=== PATIENT | female | born 2000 | race Caucasian/White ===

== ENCOUNTER 2023-06-29 08:07 | Inpatient (IN) ==
--- NOTE | 2023-06-29 08:45 | Emergency Department Note ---
Impression & Plan Sepsis, Sinusitis, Allergic drug rash due to sulfonamide ED Provider Note NAME: RADHA HAWK AGE: 23 SEX: F : 2000 ARRIVES VIA: Walk-In INFORMANT: Patient ED PROVIDER(S): Tito Charlton DO CHIEF COMPLAINT: Rash, and fever HPI: Patient is a 21-year-old female who presents to the ER who had her wisdom teeth taken out in mid April. Following this she notes that she had pressure on the right side of her face and was treated several times for sinus infection. She now just started a prescription for Bactrim and is on day 6 of 21 days. She notes the fever started last night. The rash has continued and gotten worse throughout her upper body. She notes that it is itchy. No oral involvement. No chest pain or shortness of breath. No belly pain. No dysuria, urgency, or frequency. She has no headache with the exception of the pain behind her right eye which has been present for the past several weeks. She is following with an ENT in [place]. She notes that she does have an allergy to penicillins. She also notes that she took Sudafed prior to the rash starting. She has had Sudafed before but notes that not this specific kind. ADDITIONAL HISTORY OBTAINED: Per HPI Chronic Medical/Social Conditions Affecting Care: Per HPI PAST MEDICAL HISTORY:See Below PAST SURGICAL HISTORY:See Below FAMILY HISTORY:See Below SOCIAL HISTORY:See Below HOME MEDICATIONS:See Below ALLERGIES:See Below VITALS:See Below PHYSICAL EXAMINATION: GENERAL: Sitting up in bed, alert, well appearing, well nourished, no distress, non-toxic EYE EXAM: normal conjunctiva. PERRL and EOM's intact. OROPHARYNX: no exudate, no erythema, lips, buccal mucosa, and tongue normal and mucous membranes are moist NECK: supple, no nuchal rigidity, no adenopathy, non-tender LUNGS: Clear to auscultation. Normal chest wall mechanics HEART: no murmurs, S1 normal and S2 normal ABDOMEN: abdomen soft, non-tender, normo-active bowel sounds, no masses, no rebound or guarding. BACK: Back is symmetrical on inspection and there is no deformity, no midline tenderness, no CVA tenderness. SKIN: Erythematous maculopapular rash which blanches. Negative Nikolsky. Includes the face chest back belly and arms. Limited UPPER EXTREMITIES: upper extremities are grossly normal. LOWER EXTREMITIES: No pitting edema. NEURO EXAM: Normal sensorium, cranial nerves II-XII grossly intact, normal speech, no gross weakness of arms, no gross weakness of legs. MEDICAL DECISION MAKING: Patient is a 21-year-old female who presents the ER for the above-stated complaint. IV was established blood work was obtained. Labs show leukopenia 3.2 thousand. BMP with a mild hyponatremia at 131. Slightly low magnesium at 1.6. Troponin was negative. Pro-Jarod was normal. UA was unremarkable. Viral panel was negative. CT of the head does suggest sinusitis. She was febrile and tachycardic. Heart rate was in the 130s. Heart rate trended down with 2 L as well as the fever. Chest x-ray was clean. CT head was negative. She was given steroids, Benadryl and Pepcid. Rash is blanching. Negative Nikolsky. No petechiae. There is no obvious oral involvement at this time. Patient will need close observation as I do favor this likely secondary to Bactrim. Always a chance for SJS/TEN and patient will need close monitoring as well as additional IV antibiotics. Patient was given clinda mycin IV for the sinusitis after discussion with the hospitalist as well as pharmacist. No signs of meningitis or encephalitis on admission. Consults/Care Managements Discussions: Per [facility] Triage Nursing notes reviewed. Limited review of prior medical records performed Vital Signs: reviewed and remarkable for febrile and tachy Differential diagnosis: Differential diagnosis includes etiologies such as sepsis, UTI, pneumonia, metabolic, electrolyte abnormalities, cardiac sources, intracerebral event, toxicologic, neurological, as well as others were entertained. ER treatment provided: See below Diagnostics interpreted by me include EKG and cardiac monitoring as listed below: -Cardiac Monitoring: An order was placed for continuous cardiac monitoring. The monitor shows a rate of 130 with sinus rhythm. -ECG: Sinus rhythm rate of 103 Normal axis No PVCs ECG 434 -Laboratory studies:Interpreted by me as stated above in MDM and shown below. Imaging studies: Xrays: As interpreted by me: Portable AP upright 1 view of the chest shows no focal CTs show: CT head and sinuses suggest acute sinusitis Procedures:none Critical Care: None Past Med/Surg History Medical History IBS (irritable bowel syndrome) Surgical History No pertinent past surgical history Social History Smoking Status: Never smoker Feels Safe at Home: Yes Allergies Allergies Allergy/AdvReac Type Severity Reaction Status Date / Time sulfamethoxazole Allergy Intermediate Rash Verified 06/29/23 12:50 [From Bactrim] trimethoprim [From Bactrim] Allergy Intermediate Rash Verified 06/29/23 12:50 Penicillins Allergy Rash Verified 03/26/22 00:38 Home Meds Home Medications Medication Instructions Recorded Confirmed norethindrone 1 mg-ethinyl 1 tab PO DAILY 06/29/23 06/29/23 estradiol 10 mcg (24)-iron 10 mcg(2) tablet (Lo Loestrin Fe) sulfamethoxazole 800 1 tab PO BID 06/29/23 06/29/23 mg-trimethoprim 160 mg tablet Results & Data (ED) Vital Signs Vital Signs - 24 hr 06/29/23 08:15 06/29/23 09:00 06/29/23 10:08 Temperature 38.5 C H 37.4 C Temperature Source Temporal Artery Scan Oral Pulse Rate 132 H 110 H Pulse Rate [Left Finger] 108 H Pulse Rhythm Regular Respiratory Rate 16 20 24 Respiratory Effort / Characteristics Non-Labored Respiratory Depth Normal Blood Pressure 113/75 Blood Pressure [Left Arm] 108/87 Blood Pressure Mean 87 Blood Pressure Mean [Left Arm] 94 Pulse Oximetry 100 98 99 Oxygen Delivery Method Room Air Room Air Sepsis Recent Fever Within 48 Hours No Sepsis New/Unexplained Change in Mental Status N/A Sepsis Action Taken by Nursing No Action Required 06/29/23 11:26 Temperature Temperature Source Pulse Rate Pulse Rate [Left Finger] 96 H Pulse Rhythm Respiratory Rate 20 Respiratory Effort / Characteristics Respiratory Depth Blood Pressure Blood Pressure [Left Arm] 110/72 Blood Pressure Mean Blood Pressure Mean [Left Arm] 84 Pulse Oximetry 100 Oxygen Delivery Method Room Air Sepsis Recent Fever Within 48 Hours Sepsis New/Unexplained Change in Mental Status Sepsis Action Taken by Nursing Laboratory Data 06/29/23 08:45 06/29/23 08:45 Lab Results 06/29/23 06/29/23 Range/Units 08:45 08:57 WBC 3.26 L (4.8-10.8) K/ul RBC 4.30 (4.20-5.40) M/uL Hgb 12.4 (12.0-16.0) g/dl Hct 37.2 (37.0-47.0) % MCV 86.5 (80.0-100.0) fL MCH 28.8 (25.0-34.0) pg MCHC 33.3 (32.0-36.0) g/dL RDW Std Deviation 40.2 (36.4-46.3) fL RDW Coeff of Daria 12.8 (11.5-14.5) % Plt Count 260 (130-400) K/uL MPV 9.5 (9.4-12.4) fL Immature Gran % (Auto) 0.3 % Neut % (Auto) 74.6 % Lymph % (Auto) 11.3 % [place] % (Auto) 10.1 % Eos % (Auto) 3.7 % Baso % (Auto) 0.0 % Neut # (Auto) 2.43 (1.40-6.50) K/uL Lymph # (Auto) 0.37 L (1.20-3.40) K/uL [place] # (Auto) 0.33 (0.11-0.59) K/uL Eos # (Auto) 0.12 (0.00-0.50) K/uL Baso # (Auto) 0.00 (0.00-0.20) K/uL Immature Gran # (Auto) 0.01 (0.01-0.20) K/uL Sodium 131 L (136-145) mmol/L Potassium 3.7 (3.5-5.1) mmol/L Chloride 99 (98-107) mmol/L Carbon Dioxide 23 (21-32) mmol/L Anion Gap 9 (3-11) BUN 6 (6-23) mg/dl Creatinine 0.85 (0.6-1.2) mg/dl Est Cr Clr Drug Dosing 90.6 ml/min Est GFR ( Amer) 112.7 ml/min Est GFR (Non-Af Amer) 97.3 ml/min BUN/Creatinine Ratio 7.1 L (10-20) Glucose 96 (70-99(Fasting)) mg/dl Lactate 0.8 (0.4-2.0) mmol/L Calcium 9.2 (8.6-10.3) mg/dl Magnesium 1.6 L (1.7-2.4) mg/dl Total Bilirubin 0.3 (0.2-1.0) mg/dl Direct Bilirubin 0.0 (0-0.2) mg/dl AST 21 (13-39) U/L ALT 20 (7-52) U/L Alkaline Phosphatase 67 (34-104) U/L Troponin I High Sens < 2.3 (0-14) pg/ml Total Protein 7.9 (6.0-8.3) gm/dl Albumin 4.5 (3.4-5.0) gm/dl Procalcitonin 0.14 (0-0.5) ng/ml Urine Color Yellow Urine Appearance Clear (Clear) Urine pH 6.5 (4.5-7.5) Ur Specific [place] 1.015 (1.000-1.030) Urine Protein Negative (Negative) Urine Glucose (UA) Negative (Negative) Urine Ketones Trace H (Negative) Urine Blood Negative (Negative) Urine Nitrite Negative (Negative) Urine Bilirubin Negative (Negative) Urine Urobilinogen Negative (Negative) Ur Leukocyte Esterase Negative (Negative) Adenovirus (PCR) Not Detected (NotDetected) B. pertussis DNA (PCR) Not Detected (NotDetected) B.parapertussis DNA PCR Not Detected (NotDetected) C. pneumoniae DNA (PCR) Not Detected (NotDetected) Coronavirus OC43 (PCR) Not Detected (NotDetected) Coronavirus HKU1 (PCR) Not Detected (NotDetected) Coronavirus 229E (PCR) Not Detected (NotDetected) SARS-CoV-2 (PCR) Not Detected (NotDetected) Coronavirus NL63 (PCR) Not Detected (NotDetected) Human Metapneumovir PCR Not Detected (NotDetected) Influenza Type A (PCR) Not Detected (NotDetected) Influenza Type B (PCR) Not Detected (NotDetected) M. pneumoniae (PCR) Not Detected (NotDetected) Parainfluenza 1 (PCR) Not Detected (NotDetected) Parainfluenza 2 (PCR) Not Detected (NotDetected) Parainfluenza 3 (PCR) Not Detected (NotDetected) Parainfluenza 4 (PCR) Not Detected (NotDetected) RSV (PCR) Not Detected (NotDetected) Entero/Rhino (PCR) Not Detected (NotDetected) Administered Medications Discontinued Medications Acetaminophen (Acetaminophen 325 Mg Tab) 650 mg PO NOW STA Stop: 06/29/23 09:05 Last Admin: 06/29/23 09:32 Dose: 650 mg Documented By: JHONY Diphenhydramine HCl (Diphenhydramine 50 Mg/Ml Vial) 50 mg IV NOW STA Stop: 06/29/23 08:43 Last Admin: 06/29/23 09:03 Dose: 50 mg Documented By: JHONY Sodium Chloride (Nss) 1,000 mls @ 999 mls/hr IV .Q1H1M ALISSA Stop: 06/29/23 10:45 Last Infusion: 06/29/23 10:50 Dose: Infused Documented By: Admin: 06/29/23 09:53 Dose: 999 mls/hr Documented By: Infusion: 06/29/23 09:53 Dose: Infused Documented By: Admin: 06/29/23 08:52 Dose: 999 mls/hr Documented By: JHONY Famotidine (Pepcid 20mg Iv Push) 20 mg in 5 mls @ 2.5 mls/min IV NOW STA Stop: 06/29/23 08:43 Last Admin: 06/29/23 09:02 Dose: 2.5 mls/min Documented By: JHONY Clindamycin Phosphate (Cleocin/D5w) 900 mg in 50 mls @ 100 mls/hr IV NOW ONE Stop: 06/29/23 12:33 Last Infusion: 06/29/23 13:00 Dose: Infused Documented By: Admin: 06/29/23 12:15 Dose: 100 mls/hr Documented By: JHONY Methylprednisolone (Methylprednisolone 125 Mg/2 Ml Vial) 125 mg IV NOW STA Stop: 06/29/23 08:43 Last Admin: 06/29/23 09:04 Dose: 125 mg Documented By: JHONY Imaging Data Radiologist's Impression: Chest X-Ray 06/29/23 08:42 SINGLE VIEW CHEST CLINICAL HISTORY: Sepsis. FINDINGS: An AP, portable, upright chest radiograph is obtained. No prior studies are available for comparison at the time of dictation. The cardiomediastinal silhouette is unremarkable. The lungs and pleural spaces are clear. No pneumothorax is seen. The bony thorax is grossly intact. IMPRESSION: No active disease in the chest. ACT 112: Negative or not required by law. Electronically signed by: Delio Beth M.D. 06/29/2023 9:[address] 06/29/23 08:42 CT SCAN OF THE BRAIN WITHOUT IV CONTRAST CLINICAL HISTORY: Right-sided headache. Pain behind the right eye. COMPARISON STUDY: No priors. TECHNIQUE: Unenhanced axial CT scan of the brain is performed from the vertex to the skull base. A dose lowering technique was utilized adhering to the principles of ALARA. FINDINGS: Brain parenchyma: The brain parenchyma is normal in appearance. There is no hemorrhage, mass effect, or evidence of acute territorial ischemia by CT criteria. Bautista-white matter differentiation is preserved. No extra-axial fluid collection is seen. Ventricles, sulci, cisterns: Normal in configuration. Intracranial vasculature: The visualized intracranial vasculature at the skull base is normal in appearance. Calvarium: Unremarkable. Sinuses and mastoids: There is subtotal opacification of the right maxillary antrum which contains an air-fluid level. There are opacified right anterior ethmoid sinuses, there is also near complete opacification of the right frontal sinus. The mastoid air cells are well pneumatized. Orbits: The bony orbits are grossly intact. IMPRESSION: 1. No acute intracranial abnormality. 2. Paranasal sinus disease as above. ACT 112: Negative or not required by law. Electronically signed by: Delio Beth M.D. 06/29/2023 10:[address] 06/29/23 09:23 CT SCAN OF THE PARANASAL SINUSES CLINICAL HISTORY: Facial pain. COMPARISON STUDY: CT of the brain performed the same day 06/29/2023. TECHNIQUE: High-resolution CT scan of the paranasal sinuses is performed. Images are reviewed in the axial, sagittal, and coronal planes. IV contrast was not administered for this examination. A dose lowering technique was utilized adhering to the principles of ALARA. CT DOSE: 1394.57 mGy.cm FINDINGS: Maxillary antra: There is subtotal opacification of the right maxillary antrum noting an air-fluid level. The left maxillary sinus is clear. Anterior ethmoid sinuses: There is complete opacification of several right anterior ethmoid sinuses. Normal left. Posterior ethmoid sinuses: Clear. Sphenoid sinuses: Clear. Frontal sinuses: Subtotally opacified on the right. Clinical left. Ostiomeatal complexes: Occluded on the right. Clear on the left. Frontoethmoidal and sphenoethmoidal recesses: The right frontoethmoidal recess is occluded. The left frontoethmoidal recess and the sphenoethmoidal recesses are clear. Carotid arteries: The carotid arteries are covered noting a septal attachment on the right. Ethmoid roofs: The ethmoid roofs are symmetric. Nasal turbinates: There is dayday bullosa of the left middle nasal turbinate. Nasal septum: There is mild leftward deviation of the bony nasal septum. Optic nerves: Covered. Orbits: The bony orbits are intact. Orbital contents are normal in appearance. Calvarium: The imaged calvarium is normal in appearance Mastoid air cells: Well pneumatized. Brain parenchyma: Normal as visualized. IMPRESSION: Right-sided paranasal sinus disease as above. ACT 112: Negative or not required by law. Electronically signed by: Delio Beth M.D. 06/29/2023 11:44 AM Discharge Plan Visit Data Chief Complaint: Skin Problem Stated Complaint: ON ANTIBIOTICS, HAS HIVES ED Provider: Tito Charlton Discharge Problem: Sepsis, Sinusitis, Allergic drug rash due to sulfonamide Forms Stand Alone Forms: [facility] [place] [employer] Prescriptions Prescriptions: No Action sulfamethoxazole-trimethoprim 800-160 mg tablet 1 tab PO BID Lo Loestrin Fe 1 mg-10 mcg (24)/10 mcg (2) tablet 1 tab PO DAILY Referrals Referrals: Jeanna Franks [Outside Practitioners] - Discharge Problem: Sepsis Qualifiers: Sepsis type: sepsis due to unspecified organism Sepsis acute organ dysfunction status: unspecified Qualified Code(s): A41.9 - Sepsis, unspecified organism Sinusitis Qualifiers: Sinusitis location: unspecified location Chronicity: unspecified Qualified Code(s): J32.9 - Chronic sinusitis, unspecified
[2023-06-29] MEDS: SODIUM CHLORIDE 0.9% 1,000 ML IV SCH ×2 (08:52→15:49)
[2023-06-29] MEDS: FAMOTIDINE 20MG IV PUSH 20 MG/5 ML SYR IV STA (09:02)
[2023-06-29] MEDS: diphenhydrAMINE 50 MG/ML VIAL IV STA ×2 (09:03→23:51)
[2023-06-29] MEDS: methylPREDNISolone 125 MG/2 ML VIAL IV STA (09:04)
[2023-06-29 09:11] LABS: Eosinophils # (auto) 0.12 K/uL (0.00-0.50); Eosinophils % (auto) 3.7 %; Hematocrit (blood only) 37.2 % (37.0-47.0); Hemoglobin 12.4 g/dl (12.0-16.0); Immature Granulocytes # (auto) 0.01 K/uL (0.01-0.20); Immature Granulocytes % (auto) 0.3 %; Lymphocytes # (auto) 0.37 K/uL (1.20-3.40); Lymphocytes % (auto) 11.3 %; Mean Corpuscular Hemoglobin 28.8 pg (25.0-34.0); Mean Corpuscular Hgb Conc 33.3 g/dL (32.0-36.0); Mean Corpuscular Volume 86.5 fL (80.0-100.0); Mean Platelet Volume 9.5 fL (9.4-12.4); Monocytes # (auto) 0.33 K/uL (0.11-0.59); Monocytes % (auto) 10.1 %; Neutrophils # (auto) 2.43 K/uL (1.40-6.50); Neutrophils % (auto) 74.6 %; Platelet Count 260 K/uL (130-400); RDW Coefficient of Variation 12.8 % (11.5-14.5); RDW Standard Deviation 40.2 fL (36.4-46.3); White Blood Count 3.26 K/ul (4.8-10.8)
[2023-06-29 09:31] LABS: Alanine Aminotransferase 20 U/L (7-52); Albumin Level 4.5 gm/dl (3.4-5.0); Alkaline Phosphatase 67 U/L (34-104); Anion Gap 9 (3-11); Aspartate Aminotransferase 21 U/L (13-39); BUN Creatinine Ratio 7.1 (10-20); Bilirubin,Total 0.3 mg/dl (0.2-1.0); Blood Urea Nitrogen 6 mg/dl (6-23); Calcium 9.2 mg/dl (8.6-10.3); Carbon Dioxide 23 mmol/L (21-32); Chloride 99 mmol/L (98-107); Creatinine Clr Calc Pharmacy 90.6 ml/min; Est GFR (African American) 112.7 ml/min; Est GFR (Non-African American) 97.3 ml/min; Glucose 96 mg/dl (70-99(Fasting)); Magnesium 1.6 mg/dl (1.7-2.4); Potassium 3.7 mmol/L (3.5-5.1); Sodium 131 mmol/L (136-145); Total Protein 7.9 gm/dl (6.0-8.3); Troponin I High Sensitivity < 2.3 pg/ml (0-14)
[2023-06-29] MEDS: ACETAMINOPHEN 325 MG TAB PO STA (09:32)
[2023-06-29 09:37] LABS: Appearance Urine Clear (Clear); Bilirubin Urine Negative (Negative); Blood Urine Negative (Negative); Color Urine Yellow; Glucose Urine UA Negative (Negative); Ketones Urine Trace (Negative); Leukocyte Esterase Urine Negative (Negative); Nitrite Urine Negative (Negative); Protein Urine Negative (Negative); Specific Gravity Urine 1.015 (1.000-1.030); Urobilinogen Urine Negative (Negative); pH Urine 6.5 (4.5-7.5)
--- NOTE | 2023-06-29 09:56 | XRay Report ---
SINGLE VIEW CHEST CLINICAL HISTORY: Sepsis. FINDINGS: An AP, portable, upright chest radiograph is obtained. No prior studies are available for c omparison at the time of dictation. The cardiomediastinal silhouette is unremarkable. The lungs and p leural spaces are clear. No pneumothorax is seen. The bony thorax is grossly intact. IMPRESSION: No active disease in the chest. ACT 112: Negative or not required by law. Electronically signed by: Delio Beth M.D. 06/29/2023 9:55 AM
--- NOTE | 2023-06-29 10:07 | CT Scan Report ---
CT SCAN OF THE BRAIN WITHOUT IV CONTRAST CLINICAL HISTORY: Right-sided headache. Pain behind the right eye. COMPARISON STUDY: No priors. TECHNIQUE: Unenhanced axial CT scan of the brain is performed from the vertex to the skull base. A d ose lowering technique was utilized adhering to the principles of ALARA. FINDINGS: Brain parenchyma: The brain parenchyma is normal in appearance. There is no hemorrhage, mass effect, or evidence of acute territorial ischemia by CT criteria. Bautista-white matter differentiation is preser venancio. No extra-axial fluid collection is seen. Ventricles, sulci, cisterns: Normal in configuration. Intracranial vasculature: The visualized intracranial vasculature at the skull base is normal in appe arance. Calvarium: Unremarkable. Sinuses and mastoids: There is subtotal opacification of the right maxillary antrum which contains an air-fluid level. There are opacified right anterior ethmoid sinuses, there is also near complete opa cification of the right frontal sinus. The mastoid air cells are well pneumatized. Orbits: The bony orbits are grossly intact. IMPRESSION: 1. No acute intracranial abnormality. 2. Paranasal sinus disease as above. ACT 112: Negative or not required by law. Electronically signed by: Delio Beth M.D. 06/29/2023 10:05 AM
[2023-06-29 10:17] LABS: Adenovirus PCR Not Detected (NotDetected); Bordetella parapertussis PCR Not Detected (NotDetected); Bordetella pertussis PCR Not Detected (NotDetected); Chlamydia pneumoniae PCR Not Detected (NotDetected); Coronavirus 229E PCR Not Detected (NotDetected); Coronavirus CoV-2 (COVID19)PCR Not Detected (NotDetected); Coronavirus HKU1 PCR Not Detected (NotDetected); Coronavirus NL63 PCR Not Detected (NotDetected); Coronavirus OC43PCR Not Detected (NotDetected); Human Metapneumovirus PCR Not Detected (NotDetected); Influenza A PCR Not Detected (NotDetected); Influenza B PCR Not Detected (NotDetected); Mycoplasma pneumoniae PCR Not Detected (NotDetected); Parainfluenza Virus 1 PCR Not Detected (NotDetected); Parainfluenza Virus 2 PCR Not Detected (NotDetected); Parainfluenza Virus 3 PCR Not Detected (NotDetected); Parainfluenza Virus 4 PCR Not Detected (NotDetected); Respiratory Syncytial VirusPCR Not Detected (NotDetected); Rhinovirus/Enterovirus PCR Not Detected (NotDetected)
--- NOTE | 2023-06-29 11:45 | CT Scan Report ---
CT SCAN OF THE PARANASAL SINUSES CLINICAL HISTORY: Facial pain. COMPARISON STUDY: CT of the brain performed the same day 06/29/2023. TECHNIQUE: High-resolution CT scan of the paranasal sinuses is performed. Images are reviewed in the axial, sagittal, and coronal planes. IV contrast was not administered for this examination. A dose lowering technique was utilized adhering to the principles of ALARA. CT DOSE: 1394.57 mGy.cm FINDINGS: Maxillary antra: There is subtotal opacification of the right maxillary antrum noting an air-fluid le dylan. The left maxillary sinus is clear. Anterior ethmoid sinuses: There is complete opacification of several right anterior ethmoid sinuses. Normal left. Posterior ethmoid sinuses: Clear. Sphenoid sinuses: Clear. Frontal sinuses: Subtotally opacified on the right. Clinical left. Ostiomeatal complexes: Occluded on the right. Clear on the left. Frontoethmoidal and sphenoethmoidal recesses: The right frontoethmoidal recess is occluded. The left frontoethmoidal recess and the sphenoethmoidal recesses are clear. Carotid arteries: The carotid arteries are covered noting a septal attachment on the right. Ethmoid roofs: The ethmoid roofs are symmetric. Nasal turbinates: There is dayday bullosa of the left middle nasal turbinate. Nasal septum: There is mild leftward deviation of the bony nasal septum. Optic nerves: Covered. Orbits: The bony orbits are intact. Orbital contents are normal in appearance. Calvarium: The imaged calvarium is normal in appearance Mastoid air cells: Well pneumatized. Brain parenchyma: Normal as visualized. IMPRESSION: Right-sided paranasal sinus disease as above. ACT 112: Negative or not required by law. Electronically signed by: Delio Beth M.D. 06/29/2023 11:44 AM
--- NOTE | 2023-06-29 11:49 | Electrocardiogram Report ---
Test Reason : Blood Pressure : / mmHG Vent. Rate : 103 BPM Atrial Rate : 103 BPM P-R Int : 148 ms QRS Dur : 062 ms QT Int : 332 ms P-R-T Axes : 086 080 070 degrees QTc Int : 434 ms Sinus tachycardia Abnormal ECG No previous ECGs available Confirmed by Anthony Rose ([id number]) on 06/29/2023 11:49:19 AM Referred By: Confirmed By:River Rose
[2023-06-29] MEDS: CLINDAMYCIN/D5W 900 MG/50 ML BAG IV ONE (12:15)
--- NOTE | 2023-06-29 12:18 | History & Physical Report ---
Date of Service June 29, 2023 Assessment & Plan (1) Sepsis: Plan: Febrile, tachycardic, white blood count < 4. - Suspected systemic inflammatory response is really due to her type IV hypersensitivity reaction however we will treat as sepsis. Lactate normal and no hypotension to warrant 30 ml/kg fluid resuscitation IV clindamycin to cover for sinusitis Follow-up blood cultures (2) Sinusitis: Plan: Clindamycin 600 mg IV q.8 hourly Prednisone should also help with this Saline nasal spray BID Will need to follow-up with ENT in [place] on discharge (3) Allergic drug rash due to sulfonamide: Plan: Type IV hypersensitivity reaction - suspect this was also the cause of her fever given occurrence at the same time Solu-Medrol 125 mg IV given in the ER, will continue 40 mg prednisone p.o. daily however main treatment is just withdrawal of Bactrim therefore this can be stopped once itching improves Lo 180 mg p.o. daily Diphenhydramine 25 mg IV PRNs q.6 hourly for itching or continued rash Expect improvement over days not hours - may get worse before improving as main treatment is removal of Bactrim which she last took at 6pm yesterday No current mucosal involvement, conjunctivitis or blistering to suggest Josh Brad syndrome - if these develop will need to be transferred to tertiary care center with dermatology Avoid sulfa antibiotics in the future Consider follow-up with allergy with concurrent possible penicillin allergy Plan VTE Prophyalxis - low risk Diet - regular Disposition - admit to med/surg Admission and Anticipated Discharge Date Admission Date: June 29, 2023 History of Present Illness Chief Complaint: Fever and rash Primary Care Provider: [facility] Constance Huggins is a 23-year-old female who presents to the ER due to fever and rash. She reports a history of wisdom tooth extraction in mid April after which she has had problems with her right maxillary sinus pressure. She has been on multiple rounds of antibiotics including azithromycin, cefuroxime and Levaquin. Of note she never took the penicillin that was prescribed due to a previous allergy to this. Most recently she was seen by ENT in [place] who started Bactrim for 21 days and plan to review a CT of the sinuses following this to determine if she required surgery. She has had no problems with her sinuses prior to her wisdom tooth removal. She started the Bactrim 6 days ago. She has not noticed any change in her sinuses. Last night she developed a fever and a rash which became worse this morning therefore decided to come to the ER. Allergies Allergy/AdvReac Type Severity Reaction Status Date / Time sulfamethoxazole Allergy Intermediate Rash Verified 06/29/23 12:50 [From Bactrim] trimethoprim [From Bactrim] Allergy Intermediate Rash Verified 06/29/23 12:50 Penicillins Allergy Rash Verified 03/26/22 00:38 Home Medications Medication Instructions Recorded Confirmed Type norethindrone 1 mg-ethinyl 1 tab PO DAILY 06/29/23 06/29/23 History estradiol 10 mcg (24)-iron 10 mcg(2) tablet (Lo Loestrin Fe) sulfamethoxazole 800 1 tab PO BID 06/29/23 06/29/23 History mg-trimethoprim 160 mg tablet Past Med/Surg History Medical History IBS (irritable bowel syndrome) Surgical History No pertinent past surgical history Social History Smoking Status: Never smoker Second Hand Exposure: No; Do You Dip or Chew Tobacco: No; Tobacco Cessation Education Requested by Patient: No Hx Alcohol Use: No Hx Substance Use: No Preferred Language: French Communication Ability: Effective Well Digger Required: No Beliefs That Will Affect Care: None Current Living Situation: Other Current Living Situation Comment: Student on [place], from [place] originally Other Information That Helps Us Care for You: No Feels Safe at Home: Yes Safety Concerns: Feels Safe At This Time Assistive Devices: None Review of Systems Review of Systems: All systems reviewed & are unremarkable except as noted in HPI & below Physical Exam Constitutional: WD/WN, vitals as above Eyes: + anicteric sclerae; no corneal abnormal ity and normal pupil size ENMT: external ear and nose normal, oropharynx normal Pain over the right maxillary sinus Respiratory: normal respiratory effort, lungs clear to auscultation Cardiovascular: Rate/Rhythm: regular rhythm and + tachycardic Heart Sounds: no murmur Gastrointestinal (Abdomen): normal bowel sounds, soft, nontender, no hepatosplenomegaly Skin: + erythema (Widespread maculopapular diane h over face, torso, abdomen and all 4 extremiti) Rash most notable over the back Neurologic: moves all extremities and awake; not confused Psychiatric: A+Ox3, euthymic affect Results & Data Results & Data Vital Signs (Past 12 Hours) Vital Signs Temp Pulse Pulse Resp BP BP Pulse Ox 06/29/23 11:26 96 H 20 110/72 100 06/29/23 10:08 37.4 C 108 H 24 108/87 99 06/29/23 09:00 110 H 20 98 06/29/23 08:15 38.5 C H 132 H 16 113/75 100 O2 Del Method 06/29/23 11:26 Room Air 06/29/23 10:08 06/29/23 09:00 Room Air 06/29/23 08:15 Room Air Laboratory Results Abnormal lab results 06/29/23 Range/Units 08:45 WBC 3.26 L (4.8-10.8) K/ul Lymph # (Auto) 0.37 L (1.20-3.40) K/uL ESR 54 H (0-20) mm/hr Sodium 131 L (136-145) mmol/L BUN/Creatinine Ratio 7.1 L (10-20) Magnesium 1.6 L (1.7-2.4) mg/dl C-Reactive Protein 2.61 H (0-0.5) mg/dl Urine Ketones Trace H (Negative) Diagnostic Findings CT SCAN OF THE BRAIN WITHOUT IV CONTRAST CLINICAL HISTORY: Right-sided headache. Pain behind the right eye. COMPARISON STUDY: No priors. TECHNIQUE: Unenhanced axial CT scan of the brain is performed from the vertex to the skull base. A dose lowering technique was utilized adhering to the principles of ALARA. FINDINGS: Brain parenchyma: The brain parenchyma is normal in appearance. There is no hemorrhage, mass effect, or evidence of acute territorial ischemia by CT criteria. Bautista-white matter differentiation is preserved. No extra-axial fluid collection is seen. Ventricles, sulci, cisterns: Normal in configuration. Intracranial vasculature: The visualized intracranial vasculature at the skull base is normal in appearance. Calvarium: Unremarkable. Sinuses and mastoids: There is subtotal opacification of the right maxillary antrum which contains an air-fluid level. There are opacified right anterior ethmoid sinuses, there is also near complete opacification of the right frontal sinus. The mastoid air cells are well pneumatized. Orbits: The bony orbits are grossly intact. IMPRESSION: 1. No acute intracranial abnormality. 2. Paranasal sinus disease as above. SINGLE VIEW CHEST CLINICAL HISTORY: Sepsis. FINDINGS: An AP, portable, upright chest radiograph is obtained. No prior studies are available for comparison at the time of dictation. The cardiomediastinal silhouette is unremarkable. The lungs and pleural spaces are clear. No pneumothorax is seen. The bony thorax is grossly intact. IMPRESSION: No active disease in the chest. CT SCAN OF THE PARANASAL SINUSES CLINICAL HISTORY: Facial pain. COMPARISON STUDY: CT of the brain performed the same day 06/29/2023. TECHNIQUE: High-resolution CT scan of the paranasal sinuses is performed. Images are reviewed in the axial, sagittal, and coronal planes. IV contrast was not administered for this examination. A dose lowering technique was utilized adhering to the principles of ALARA. CT DOSE: 1394.57 mGy.cm FINDINGS: Maxillary antra: There is subtotal opacification of the right maxillary antrum noting an air-fluid level. The left maxillary sinus is clear. Anterior ethmoid sinuses: There is complete opacification of several right anterior ethmoid sinuses. Normal left. Posterior ethmoid sinuses: Clear. Sphenoid sinuses: Clear. Frontal sinuses: Subtotally opacified on the right. Clinical left. Ostiomeatal complexes: Occluded on the right. Clear on the left. Frontoethmoidal and sphenoethmoidal recesses: The right frontoethmoidal recess is occluded. The left frontoethmoidal recess and the sphenoethmoidal recesses are clear. Carotid arteries: The carotid arteries are covered noting a septal attachment on the right. Ethmoid roofs: The ethmoid roofs are symmetric. Nasal turbinates: There is dayday bullosa of the left middle nasal turbinate. Nasal septum: There is mild leftward deviation of the bony nasal septum. Optic nerves: Covered. Orbits: The bony orbits are intact. Orbital contents are normal in appearance. Calvarium: The imaged calvarium is normal in appearance Mastoid air cells: Well pneumatized. Brain parenchyma: Normal as visualized. IMPRESSION: Right-sided paranasal sinus disease as above. Medications Administered ER medications given: Normal saline 1 L bolus Solu-Medrol 125 mg IV Diphenhydramine 50 mg IV Famotidine 20 mg IV Acetaminophen 650 mg p.o. Clindamycin 900 mg IV ECG Rate (beats per minute): 103 Rhythm: normal sinus Findings: no acute ischemic change Comparison ECG Date: no prior available Code Status & VTE Plan Code Status Full VTE Prophylaxis Plan VTE Prophylaxis will be ordered: No PG Care Time/CCT Total # of Minutes Spent Total Time Spent: 80 Total Time Spent with Patient: Total time spent is greater than 50% in coordination of care (as documented) at patient's floor/unit and/or counseling patient: Coding Level of Care Code 57954 INT INP/OBS CARE MIN Diagnoses Sepsis A41.9 Sinusitis J32.9 Allergic drug rash due to sulfonamide L27.0; T37.0X5A
[2023-06-29 14:53] LABS: C Reactive Protein 2.61 mg/dl (0-0.5)
[2023-06-29] MEDS ORDERED: ACETAMINOPHEN 325 MG TAB PO PRN (15:26)
[2023-06-29] MEDS: MAGNESIUM SULFATE / D5W 1 GM/100 ML BAG IV SCH (15:48)
[2023-06-29] MEDS: diphenhydrAMINE 50 MG/ML VIAL IV PRN ×2 (15:53→21:52)
[2023-06-29] MEDS: FEXOFENADINE HCL 180 MG TAB PO SCH (17:14)
[2023-06-29] MEDS: ADVANCED PROBIOTIC 1250 MG CAPSULE PO SCH (17:14)
[2023-06-29] MEDS: CLINDAMYCIN/D5W 600 MG/50 ML BAG IV SCH (18:29)
[2023-06-29] MEDS: CLOBETASOL PROPIONATE 0.05% CREAM 15 GM TUBE EXT PRN (21:51)
[2023-06-29] MEDS: SODIUM CHLORIDE 0.65% NA SOLN 45 ML (OCEAN) SCH (21:52)
[2023-06-30 06:12] LABS: Basophils # (auto) 0.01 K/uL (0.00-0.20); Basophils % (auto) 0.2 %; Eosinophils # (auto) 0.14 K/uL (0.00-0.50); Eosinophils % (auto) 3.5 %; Hematocrit (blood only) 32.6 % (37.0-47.0); Hemoglobin 10.6 g/dl (12.0-16.0); Immature Granulocytes # (auto) 0.01 K/uL (0.01-0.20); Immature Granulocytes % (auto) 0.2 %; Lymphocytes # (auto) 1.54 K/uL (1.20-3.40); Lymphocytes % (auto) 38.4 %; Mean Corpuscular Hemoglobin 28.5 pg (25.0-34.0); Mean Corpuscular Hgb Conc 32.5 g/dL (32.0-36.0); Mean Corpuscular Volume 87.6 fL (80.0-100.0); Mean Platelet Volume 9.6 fL (9.4-12.4); Monocytes # (auto) 0.38 K/uL (0.11-0.59); Monocytes % (auto) 9.5 %; Neutrophils # (auto) 1.93 K/uL (1.40-6.50); Neutrophils % (auto) 48.2 %; Platelet Count 253 K/uL (130-400); RDW Coefficient of Variation 13.2 % (11.5-14.5); RDW Standard Deviation 42.4 fL (36.4-46.3); Red Blood Count 3.72 M/uL (4.20-5.40); White Blood Count 4.01 K/ul (4.8-10.8)
[2023-06-30 06:38] LABS: Albumin Globulin Ratio 1.2 (0.9-2); Albumin Level 3.6 gm/dl (3.4-5.0); BUN Creatinine Ratio 13.1 (10-20); Bilirubin,Total 0.2 mg/dl (0.2-1.0); Calcium 8.3 mg/dl (8.6-10.3); Creatinine Clr Calc Pharmacy 126.3 ml/min; Est GFR (African American) 149.1 ml/min; Est GFR (Non-African American) 128.7 ml/min; Globulin 2.9 gm/dl (2.5-4.0); Magnesium 2.1 mg/dl (1.7-2.4); Potassium 3.7 mmol/L (3.5-5.1); Total Protein 6.5 gm/dl (6.0-8.3)
[2023-06-30] MEDS: PATIENT'S OWN ORAL CONTRACEPTIVE PO SCH ×2 (08:35→20:48)
[2023-06-30] MEDS: predniSONE 20 MG TAB PO SCH (09:28)
--- NOTE | 2023-06-30 10:49 | Hospitalist Progress Note ---
Date of Service June 30, 2023 Assessment & Plan (1) Sepsis: Plan: Febrile, tachycardic, white blood count < 4. - Suspected systemic inflammatory response is really due to her type IV hypersensitivity reaction however we will treat as sepsis. Lactate normal and no hypotension to warrant 30 ml/kg fluid resuscitation IV clindamycin to cover for sinusitis Follow-up blood cultures No longer SIRS on 06/30 unsure if patients needs antibiotics at this time, will consult ID. will benefit from ENT (2) Sinusitis: Plan: Clindamycin 600 mg IV q.8 hourly Prednisone should also help with this Saline nasal spray BID Will need to follow-up with ENT in [place] on discharge (3) Allergic drug rash due to sulfonamide: Plan: Type IV hypersensitivity reaction - suspect this was also the cause of her fever given occurrence at the same time Solu-Medrol 125 mg IV given in the ER, will continue 40 mg prednisone p.o. daily however main treatment is just withdrawal of Bactrim therefore this can be stopped once itching improves Lo 180 mg p.o. daily Diphenhydramine 25 mg IV PRNs q.6 hourly for itching or continued rash Expect improvement over days not hours - may get worse before improving as main treatment is removal of Bactrim which she last took at 6pm yesterday No current mucosal involvement, conjunctivitis or blistering to suggest Josh Brad syndrome - if these develop will need to be transferred to tertiary care center with dermatology Avoid sulfa antibiotics in the future Consider follow-up with allergy with concurrent possible penicillin allergy Plan VTE Prophyalxis - low risk Diet - regular Disposition - admit to med/surg Admission and Anticipated Discharge Date Admission Date: June 29, 2023 Subjective Patient reports less priritus, and skin appears less red. Review of Systems Review of Systems: All systems reviewed & are unremarkable except as noted in HPI & below Physical Exam Constitutional: WD/WN, vitals as above Eyes: + anicteric sclerae; no corneal abnormal ity and normal pupil size ENMT: external ear and nose normal, oropharynx normal Respiratory: normal respiratory effort, lungs clear to auscultation Cardiovascular: Rate/Rhythm: regular rhythm and + tachycardic Heart Sounds: no murmur Gastrointestinal (Abdomen): normal bowel sounds, soft, nontender, no hepatosplenomegaly Skin: + erythema (Widespread maculopapular diane h over face, torso, abdomen and all 4 extremiti) Rash most notable over the back, goes below knees. Neurologic: moves all extremities and awake; not confused Psychiatric: A+Ox3, euthymic affect Results & Data Results & Data Vital Signs (Past 12 Hours) Vital Signs Temp Pulse Resp BP Pulse Ox O2 Del Method 06/30/23 10:45 101/62 06/30/23 07:56 36.8 C 85 18 90/45 L 93 Room Air PG Care Time/CCT Total # of Minutes Spent Total Time Spent with Patient: Total time spent is greater than 50% in coordination of care (as documented) at patient's floor/unit and/or counseling patient: Coding Level of Care Code 01650 SUB INP/OBS CARE 2/35MIN Diagnoses Sepsis A41.9 Sepsis acute organ dysfunction status: unspecified Sepsis type: sepsis due to unspecified organism Sinusitis J32.9 Chronicity: unspecified Sinusitis location: unspecified location Allergic drug rash due to sulfonamide L27.0; T37.0X5A (1) Sepsis Sepsis acute organ dysfunction status: unspecified Sepsis type: sepsis due to unspecified organism Qualified Code(s): A41.9 - Sepsis, unspecified organism (2) Sinusitis Chronicity: unspecified Sinusitis location: unspecified location Qualified Code(s): J32.9 - Chronic sinusitis, unspecified
[2023-06-30] MEDS ORDERED: Nursing to Pharmacy Communication SCH (11:30)
[2023-06-30] MEDS: methylPREDNISolone 20 MG in SYRINGE 0 ML IV ONE (14:02)
[2023-06-30] MEDS: diphenhydrAMINE 50 MG/ML VIAL IV STA (21:26)
[2023-07-01 07:12] LABS: Hematocrit (blood only) 33.2 % (37.0-47.0); Hemoglobin 10.9 g/dl (12.0-16.0); Mean Corpuscular Hemoglobin 28.8 pg (25.0-34.0); Mean Corpuscular Hgb Conc 32.8 g/dL (32.0-36.0); Mean Corpuscular Volume 87.6 fL (80.0-100.0); Mean Platelet Volume 9.7 fL (9.4-12.4); Platelet Count 261 K/uL (130-400); RDW Coefficient of Variation 13.5 % (11.5-14.5); RDW Standard Deviation 43.2 fL (36.4-46.3); Red Blood Count 3.79 M/uL (4.20-5.40); White Blood Count 5.37 K/ul (4.8-10.8)
[2023-07-01 07:30] LABS: BUN Creatinine Ratio 19.7 (10-20); C Reactive Protein 1.7 mg/dl (0-0.5); Creatinine Clr Calc Pharmacy 116.7 ml/min; Est GFR (African American) 145.3 ml/min; Est GFR (Non-African American) 125.4 ml/min; Potassium 3.8 mmol/L (3.5-5.1)
[2023-07-01] MEDS: predniSONE 20 MG TAB PO STA (12:22)
--- NOTE | 2023-07-01 17:13 | Allergy & Immunology Consult ---
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 Although Bactrim appears to be the likely culprit of the patient's diffuse maculopapular rash, the type of reaction the patient may be experiencing is not entirely clear. The timing of the patient's reaction (as well as possible joint involvement) raises some concern for possible serum sickness (type III hypersensitivity reaction). However, with the patient's fever coinciding with the onset of her maculopapular rash it is also possible that the patient could be experiencing some component of a cellular mediated/delayed type (type IV) hypersensitivity reaction (such as SJS/TEN, DRESS, etc.), although these rashes may tend to occur closer to 10 days to 2 weeks later or more. However, the patient's normal absolute eosinophil count makes DRESS a less likely diagnosis. In any case, it is reasonable to continue indefinite avoidance of Bactrim forward and to continue on a prolonged steroid course for management of her rash (which already appears to be fading at this time). Separately, the patient's described penicillin reaction history does not raise great concern for an IgE mediated drug allergy based on timing and constellation of symptoms. For this reason (particularly given the importance of the penicillin class of antibiotics as the first-line agent in treating a great variety of infections), the patient will be arranged to undergo objective evaluation of her penicillin allergy status with testing/challenge in an outpatient setting. -Continue to avoid Bactrim indefinitely -Continue prolonged steroid course/taper -Request 2 week follow up to establish care with local Allergy/Immunology to extend/adjust prednisone course as necessary -Will also arrange for penicillin testing/challenge -Obtain baseline tryptase level (which can be subsequently compared to an "event related tryptase level" obtained within 2 to 3 hours of any future episodes concerning for an IgE-mediated allergic reaction) History of Present Illness Reason for Consultation: generalized rash likely secondary to Bactrim Attending Physician: Jus Vela History of Present Illness The patient is a 23-year-old woman presenting with a suspected immune complex mediated or delayed type hypersensitivity reaction to Bactrim. The patient n otes that on 05/15/23 she underwent wisdom teeth extraction, although this was complicated by the development of a connection/tract from the oral cavity to the sinuses which ultimately resulted in a sinus infection. She was initially started on one type of an antibiotic which she was able to tolerate without issue, but unfortunately did not result in any improvement of her sinus infection (at which point she was evaluated by an [employer]). She was ultimately transitioned to Bactrim by her home Workforce Planner which she was initially able to tolerate for a time, but on day 7 of her course she went on to develop fever as well as a diffuse maculopapular rash. In conjunction with this rash, the patient has developed some joint/muscle aches (though she has not developed any conjunctivitis, dysuria, breathing difficulties, nausea/vomiting, and/or paleness/lightheadedness). Following presentation to care in the Emergency Room and then subsequent inpatient monitoring she has been t ransitioned from Bactrim to clindamycin which she seems to tolerate without issue. The patient has also been managed with systemic steroids for suspected SJS/TEN, but her lower dose of steroids did not seem to adequately improve her condition (with her rash and even some degree of facial swelling seemingly getting worse) at which point she was started on a higher dose of systemic steroids (60mg prednisone) which has seemed to be more effective in calming down the patient's rash/reaction. Of note, throughout the patient's inpatient stay her absolute eosinophil count has remained within normal limits. Separately, the patient also has a history of a penicillin allergy from around 2021 or so when she received a penicillin antibiotic for management of an infection of her leg. Several days into her course the patient developed diffuse itchy bumps (in absence of symptoms of wheezing/shortness of breath, nausea/vomiting, and/or paleness/lightheadedness). She did not require emergency room presentation for management of this reaction, but has avoided penicillin antibiotics ever since. Allergies Allergy/AdvReac Type Severity Reaction Status Date / Time sulfamethoxazole Allergy Severe Márquez-Brad Verified 07/01/23 11:34 [From Bactrim] syndrome trimethoprim [From Bactrim] Allergy Severe Márquez-Brad Verified 07/01/23 11:35 syndrome Penicillins Allergy Rash Verified 03/26/22 00:38 Home Medications Medication Instructions Recorded Confirmed Type norethindrone 1 mg-ethinyl 1 tab PO DAILY 06/29/23 06/29/23 History estradiol 10 mcg (24)-iron 10 mcg(2) tablet (Lo Loestrin Fe) sulfamethoxazole 800 1 tab PO BID 06/29/23 06/29/23 History mg-trimethoprim 160 mg tablet Patient History Medical History (Updated 07/01/23 @ 18:41 by Kevin Sheets MD) Penicillin allergy Generalized maculopapular rash IBS (irritable bowel syndrome) Surgical History (Updated 07/01/23 @ 17:49 by Analia Jones MD) No pertinent past surgical history Social History Smoking Status: Never smoker Second Hand Exposure: No; Do You Dip or Chew Tobacco: No; Tobacco Cessation Education Requested by Patient: No Hx Alcohol Use: No Hx Substance Use: No Preferred Language: Turkmen Communication Ability: Effective Coldfusion Required: No Beliefs That Will Affect Care: None Current Living Situation: Other Current Living Situation Comment: Student on [place], from [place] originally Other Information That Helps Us Care for You: No Feels Safe at Home: Yes Safety Concerns: Feels Safe At This Time Assistive Devices: None Review of Systems Review of Systems: I reviewed the history of the following medical systems: constitutional, eyes, ears/nose/mouth/throat, respiratory, cardiovascular, gastrointestinal, genitourinary, musculoskeletal, integumentary, neurologic, psychiatric, endocrinologic, hematologic/lymphatic, and allergic/immunologic. Positive and/or significant negative findings are as above, otherwise, ROS was normal. Physical Exam Physical Exam: General: NAD, well-appearing young woman resting in hospital bed, pleasant and cooperative, engaged in interview and exam HEENT: NC/AT, MMM, no tonsillar swelling/erythema, no conjunctival injection, no nasal discharge Neck: supple, FROM, no LAD Cardiac: normal S1 and S2, RRR, no M/R/G, brisk cap refill < 2 seconds Lungs: CTAB, no W/R/R, normal work of breathing Abdomen: normal BS, soft, NT/ND, no hepatosplenomegaly, no masses Extremities: 3+ pulses, no gross deformities, no cyanosis/edema, no objective evidence of synovitis Neuro: no focal deficits, appropriate muscle strength and tone Skin: diffusely covered in fading maculopapular rash (improved when compared to initial pictures of the patient provided by bedside family members); no apparent angioedema; otherwise clean/dry/intact Results & Data Vital Signs (Past 12 Hours) Vital Signs Temp Pulse Resp BP Pulse Ox O2 Del Method 07/01/23 15:00 36.8 C 83 16 105/66 94 Room Air 07/01/23 08:16 36.6 C 70 16 105/67 99 Room Air 07/01/23 07:48 Room Air [place] [address] IN/OBS CONSULT LVL 4,60M Patient Type New History Detailed Exam Detailed Medical Decision Making Moderate Complexity Diagnoses Generalized maculopapular rash R21 Allergic drug rash due to sulfonamide L27.0; T37.0X5A 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
--- NOTE | 2023-07-01 17:51 | Infectious Disease Consult ---
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 ID is consulted for suspected SJS and sinusitis. Pts fever and rash are concerning forSJS in the setting of recent Bactrim (last dose on 06/28). Note mucosal involvement including desquamation of lips. However per dermatology pts sx may be more c/w other morbilliform/exanthematous drug reaction, and also reassuring that pts labwork does not suggest DRESS or other systemic involvement. Regardless, her reaction appears to be improving with cessation of Bactrim and with steroids. Would continue steroids, and would follow steroid dosing recommendations from dermatology and allergy. Have performed close return precautions counseling which pt and her parents voiced understanding of. If pt with significant clinical worsening (skin desquamation, refractory SJS despite steroids) would necessitate tertiary care, potentially including centers with burn unit. Uncertain why pt has continued R-sided sinusitis despite several courses of abx, and unclear how much of her remaining symptoms/imaging findings are infectious. This may be mechanical related to pts recent wisdom tooth extraction (?communication into sinuses) and would ensure close follow-up with ENT and oral surgery. Would consider adjunctive treatments and irrigation measures including nasal saline rinses, nasal saline spray, and Flonasewould confirm these interventions are OK with ENT. Pt reports that she was having significant sinusitis sx until this admission when her symptoms improved on 06/30. Overall reasonable to continue an additional course of abx, and would use cefuroxime. (Note PCN allergy, rash, and has tolerated cefuroxime previously). MRSA nares neg. After completion of this course, would defer additional abx unless significantly worsening sinusitis sx, fevers, etc. Would also consider follow-up with outpatient allergy, including for PCN testing (had rash ~2 years ago). ID Problem List: 1.Drug reaction from Bactrim. Possible Márquez-Brad syndrome with mucosal involvement; per derm may be more likely other morbilliform/exanthematous drug reaction. Improving after Bactrim cessation and with steroids 2.R-sided sinusitis 3.History of wisdom tooth extraction Recommendations: - Can change clindamycin to cefuroxime 500 mg PO BID for an additional 7-day course (07/01 2). After this would defer additional abx unless significantly worsening sinusitis sx, fevers, etc. - Would continue prednisone for drug reaction, would follow steroid dosing recommendations from dermatology and allergy. - Ensure close follow-up with ENT and oral surgery for sinusitis. Would consider adjunctive treatments including nasal saline rinses, nasal saline spray, and Flonasewould confirm these interventions are OK with ENT - Close f/u with PCP. Also consider follow-up with outpatient derm, as well as outpatient allergy including for penicillin skin testing - Close return precautions counseling. If pt with significant clinical worsening (skin desquamation, refractory SJS despite steroids) would necessitate tertiary care, potentially including centers with burn unit. Plan discussed with hospitalist. Patient will likely discharge today or tomorrow. Thank you for letting ID participate in the care of this patient. ID will sign off at this time. If questions, please contact the [facility] at [phone]. Analia Jones MD, MHS Infectious Diseases [facility] Connect direct line: [phone] Consultation Information Consultation was provided via telemedicine using two-way real-time interactive telecommunication between the patient and the telemedicine provider. For the duration of the visit, the provider was performing the assessment from a different facility than the patient. This includesuse of bluetooth stethoscope forauscultationperformed by the telepresenter that the telemedicine provider can hear if described in the physical exam. Machine Designer contact information: Please call [facility] Call Center . (Phone Number For Physician Use Only) After establishing a telemedicine visit, patient was: Patient was verified with two unique identifiers, Patient/authorized rep acknowledged consent and understanding and Gave permission to continue telehealth session Time Spent with Patient: Initial => 75 min History of Present Illness Reason for Consultation: SJS and sinusitis Attending Physician: Jus Vela History of Present Illness Constance Huggins is a 23-year-old woman with recent wisdom tooth extraction 04/2023, ongoing R maxillary sinus congestion (on multiple courses of abx: azithro, cefuroxime, levofloxacin, most recently Bactrim 06/21-06/28), who presents to [facility] ED on 06/29/23 due to fever, rigors, full-body rash, and swollen lips, with concern for Márquez-Brad syndrome. ID is consulted for SJS and sinusitis. She underwent wisdom tooth extraction in April 2023 after which she has had problems with her right maxillary sinus pressure. She reports that the oral surgeon told her she may have sinusitis as a complication of her surgery (a connection into the sinuses). She has been on multiple rounds of antibiotics in cluding azithromycin, cefuroxime and levofloxacin, 7-10 days each. Of note she never took the penicillin that was prescribed due to a penicillin allergy. With regards to her sinus symptoms, she said that she had previously had severe pain/pressure in the R sinus region and behind her R eye. She says there was no redness or obvious cellulitis or swelling of the eye, just pressure around/behind the eye. Her sinusitis symptoms would improve with abx but worsen again. Most recently she was seen by ENT in [place] who started Bactrim for 21 days and plan to review a CT of the sinuses following this to determine if she required surgery. She has had no problems with her sinuses prior to her wisdom tooth removal. No history of frequent infections. 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 She has not noticed any change in her sinuses. On 06/28 she developed a fever and a rash which became worse on 06/29. This was associated with shaking chills. The rash progressed to involve her entire body/trunk/back/extremities, including her cheeks/face, lips, and ears. She presented to [facility] ED on 06/29. In the ED, T38.5. WBC 3.2. RVP neg. BCx NGTD. She was started on IV clindamycin for sinusitis and methylpred 06/30 -> prednisone 07/01. She shows me pictures on her phone of how her rash progressed. They began as splotchy erythematous lesions on her back/flank and progressed to confluent, beefy red rash involving her full body including trunk, neck, back, extremities, cheeks/face, and swollen/desquamating lips. The symptoms were severe on the evening of 06/30 (after admission) and are improving as of 07/01. The patient reports that she feels overall better today, with significant reduction in redness, decreased swelling of the lips/face. She says that the symptoms overall still wax and wane throughout the day today, and at the time of evaluation her ears were becoming more hot/red. She said that yesterday 06/30 her sinus symptoms were also starting to feel better. She reports less pressure/congestion today than previously. She has a history of penicillin allergy, where she reports was 2 years ago. She had a little cut on her leg resulting in a purple rash on middle of thigh (?cellulitis), and reports that she had a cillin antibiotic and developed a lot of bumps on hands and elbows. No hives, no airway/throat swelling, no tongue swelling. No history of anaphylactoid reactions nor reactions to other antibiotics that she recalls. Allergies Allergy/AdvReac Type Severity Reaction Status Date / Time sulfamethoxazole Allergy Severe Márquez-Brad Verified 07/01/23 11:34 [From Bactrim] syndrome trimethoprim [From Bactrim] Allergy Severe Márquez-Brad Verified 07/01/23 11:35 syndrome Penicillins Allergy Rash Verified 03/26/22 00:38 Home Medications Medication Instructions Recorded Confirmed Type norethindrone 1 mg-ethinyl 1 tab PO DAILY 06/29/23 06/29/23 History estradiol 10 mcg (24)-iron 10 mcg(2) tablet (Lo Loestrin Fe) sulfamethoxazole 800 1 tab PO BID 06/29/23 06/29/23 History mg-trimethoprim 160 mg tablet Patient History Medical History (Updated 07/01/23 @ 18:41 by Kevin Sheets MD) Penicillin allergy Generalized maculopapular rash IBS (irritable bowel syndrome) Surgical History (Updated 07/01/23 @ 17:49 by Analia Jones MD) No pertinent past surgical history Social History Smoking Status: Never smoker Second Hand Exposure: No; Do You Dip or Chew Tobacco: No; Tobacco Cessation Education Requested by Patient: No Hx Alcohol Use: No Hx Substance Use: No Preferred Language: Turkish Communication Ability: Effective Printer Helper Required: No Beliefs That Will Affect Care: None Current Living Situation: Other Current Living Situation Comment: Student on [place], from [place] originally Other Information That Helps Us Care for You: No Feels Safe at Home: Yes Safety Concerns: Feels Safe At This Time Assistive Devices: None Physical Exam Physical Exam: Exam obtained with aid of in-person telepresenter. General: Well-appearing, no acute distress HEENT: Conjunctivae non-injected, sclerae anicteric, MMM, OP clear. Lip swelling decreased significantly c/w pictures taken yesterday 06/30 (on pts phone) which showed lip swelling and desquamation. Resp: Respirations nonlabored. Abd: Soft, nontender, nondistended Skin: Mild erythema/darkening in confluent splotchy macules over bilateral upper and lower extremities, trunk/neck, back, cheeks. Appears significantly improved from pictures taken yesterday 06/30 (on pts phone). With actively erythematous bilateral pinna. Neuro: Alert & interactive. Grossly non-focal. Psych: Pleasant, appropriate. Results & Data Vital Signs (Past 12 Hours) Vital Signs Temp Pulse Resp BP Pulse Ox O2 Del Method 07/01/23 15:00 36.8 C 83 16 105/66 94 Room Air 07/01/23 08:16 36.6 C 70 16 105/67 99 Room Air 07/01/23 07:48 Room Air Diagnostic Findings Diagnostics: 06/29 CT Sinus Maxillary antra: There is subtotal opacification of the right maxillary antrum noting an air-fluid level. The left maxillary sinus is clear. Anterior ethmoid sinuses: There is complete opacification of several right anterior ethmoid sinuses. Normal left. Posterior ethmoid sinuses: Clear. Sphenoid sinuses: Clear. Frontal sinuses: Subtotally opacified on the right. Clinical left. Ostiomeatal complexes: Occluded on the right. Clear on the left. Frontoethmoidal and sphenoethmoidal recesses: The right frontoethmoidal recess is occluded. The left frontoethmoidal recess and the sphenoethmoidal recesses are clear. Carotid arteries: The carotid arteries are covered noting a septal attachment on the right. Ethmoid roofs: The ethmoid roofs are symmetric. Nasal turbinates: There is dayday bullosa of the left middle nasal turbinate. Nasal septum: There is mild leftward deviation of the bony nasal septum. Optic nerves: Covered. Orbits: The bony orbits are intact. Orbital contents are normal in appearance. Calvarium: The imaged calvarium is normal in appearance Mastoid air cells: Well pneumatized. Brain parenchyma: Normal as visualized. IMPRESSION: Right-sided paranasal sinus disease as above. 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
--- NOTE | 2023-07-01 18:14 | Dermatology Consultation ---
Date of Consultation July 01, 2023 Assessment & Plan (1) Allergic drug rash due to sulfonamide: Morbilliform/Exanthematous drug eruption secondary to Bactrim DS - Improving. Reassured patient/parents that presentation is not c/w Márquez-Brad syndrome or other severe cutaneous adverse drug reaction (i.e. DRESS). Further, her laboratory workup does not show any signs of systemic involvement. She has responded very quickly to systemic steroids. Recommend the followin) AVOID future treatment with Bactrim DS and related sulfa medications. 2) Taper systemic steroids slowly to prevent any potential rebound. Recommend Prednisone 60mg daily x 3 days, then 50mg daily x 3 days, then 40mg daily x 3 days, then 20mg daily x 3 days, then 10mg daily x 3 days. 3) D/w patient and family general skin care measures. Recommended applying Cetaphil moisturizing cream to skin twice daily. Thanks for the consult. Call with any questions. Present on Admission?: Yes History of Present Illness Reason for Consultation: Rash Requesting Physician: Jus Vela Attending Physician: Jus Vela History of Present Illness Patient is a 23 y/o WF admitted to [facility] on 06/29/2023 for worsening rash with associated low-grade fever. I have been consulted for evaluation of her rash. She has recent history of wisdom tooth extraction in April 2023 that was complicated by what sounds like right maxillary sinusitis unresponsive to multiple courses of antibiotics. She was evaluated by ENT at her home in [place] and was started on a course of Bactrim DS x 21 days on 06/21/2023. She and her parents report that she started to develop an itchy rash on her trunk region 6-7 days after starting Bactrim DS. It gradually spread to involve majority of her trunk, arms and legs over 24-48 hours. She reports some lip swelling, but she denies any oral ulcerations, eye pain or vision changes. She does report developing low-grade fever, but she denies other systemic symptoms. No history of similar rash in the past. She presented to [facility] on 06/29/2023 and was treated with Solumedrol 125mg IV and diphenhydramine 25mg IV. Since admission she has been transitioned to prednisone 60mg once daily. She denies any blistering or pain of skin and reports that her rash has significantly improved. She denies itching currently. Her last dose of Bactrim DS was on 06/28/2023. Allergies Allergy/AdvReac Type Severity Reaction Status Date / Time sulfamethoxazole Allergy Severe Márquez-Brad Verified 07/01/23 11:34 [From Bactrim] syndrome trimethoprim [From Bactrim] Allergy Severe Márquez-Brad Verified 07/01/23 11:35 syndrome Penicillins Allergy Rash Verified 03/26/22 00:38 Home Medications Medication Instructions Recorded Confirmed Type norethindrone 1 mg-ethinyl 1 tab PO DAILY 06/29/23 06/29/23 History estradiol 10 mcg (24)-iron 10 mcg(2) tablet (Lo Loestrin Fe) sulfamethoxazole 800 1 tab PO BID 06/29/23 06/29/23 History mg-trimethoprim 160 mg tablet Patient History Medical History (Updated 07/01/23 @ 18:41 by Kevin Sheets MD) Penicillin allergy Generalized maculopapular rash IBS (irritable bowel syndrome) Surgical History (Updated 07/01/23 @ 17:49 by Analia Jones MD) No pertinent past surgical history Social History Smoking Status: Never smoker Second Hand Exposure: No; Do You Dip or Chew Tobacco: No; Tobacco Cessation Education Requested by Patient: No Hx Alcohol Use: No Hx Substance Use: No Preferred Language: Lao Communication Ability: Effective Broadcast Meteorologist Required: No Beliefs That Will Affect Care: None Current Living Situation: Other Current Living Situation Comment: Student on [place], from [place] originally Other Information That Helps Us Care for You: No Feels Safe at Home: Yes Safety Concerns: Feels Safe At This Time Assistive Devices: None Review of Systems Review of Systems: All systems reviewed & are unremarkable except as noted in HPI & below Constitutional: no body aches Eyes: no eye pain and no worsening vision Ear, Nose, Mouth, Throat: no mouth lesions Respiratory: no dyspnea and no wheezing Gastrointestinal: no abdominal pain, no nausea, no vomiting and no diarrhea/loose stools Genitourinary: no hematuria Allergy / Immunological: no lip swelling and no tongue swelling Physical Exam Physical Exam: General Appearance:Well developed, well-nourished and in no acute distress Psych:Alert, Oriented and Appropriate Skin Type:2 Face:no edema; no active dermatitis Eyelids/Ocular Mucosa: pink/moist; no erythema/ulcerations Lips/Teeth/Gums: pink/moist; no erythema/ulcerations Neck: no active dermatitis Right Lower Extremity:fading rzqc-pv-lwzpofxtretfgt patches; no vesicles/erosions/pustules Left Lower Extremity:fading ylft-ht-otysaqoutzmgsu patches; no vesicles/erosions/pustules Back:fading gyti-xr-fynxnvkfafvpjo patches; no vesicles/erosions/pustules Buttocks/Groin/Genitalia: not examined Right Upper Extremity:fading ghiu-gd-wfzdvwgncwhxxb patches; no vesicles/erosions/pustules Left Upper Extremity:fading ltgt-sj-xuounzkpczthpa patches; no vesicles/erosions/pustules Chest/Breast/Axillae:fading wndz-yb-cldbmvrnvabuty patches; no vesicles/erosions/pustules Abdomen:fading rsof-rd-puecbtvmjqqjqd patches; no vesicles/erosions/pustules Nails: no abnormalities noted Other exam notes: No head/neck lymphadenopathy. Results & Data Vital Signs (Past 12 Hours) Vital Signs Temp Pulse Resp BP Pulse Ox O2 Del Method 07/01/23 15:00 36.8 C 83 16 105/66 94 Room Air 07/01/23 08:16 36.6 C 70 16 105/67 99 Room Air 07/01/23 07:48 Room Air Laboratory Results 07/01/23 07/01/23 06/30/23 Range/Units 12:10 06:45 21:11 WBC 5.37 (4.8-10.8) K/ul RBC 3.79 L (4.20-5.40) M/uL Hgb 10.9 L (12.0-16.0) g/dl Hct 33.2 L (37.0-47.0) % MCV 87.6 (80.0-100.0) fL MCH 28.8 (25.0-34.0) pg MCHC 32.8 (32.0-36.0) g/dL RDW Std Deviation 43.2 (36.4-46.3) fL RDW Coeff of Daria 13.5 (11.5-14.5) % Plt Count 261 (130-400) K/uL MPV 9.7 (9.4-12.4) fL Sodium 140 (136-145) mmol/L Potassium 3.8 (3.5-5.1) mmol/L Chloride 106 (98-107) mmol/L Carbon Dioxide 28 (21-32) mmol/L Anion Gap 6 (3-11) BUN 13 (6-23) mg/dl Creatinine 0.66 (0.6-1.2) mg/dl Est Cr Clr Drug Dosing 116.7 ml/min Est GFR ( Amer) 145.3 ml/min Est GFR (Non-Af Amer) 125.4 ml/min BUN/Creatinine Ratio 19.7 (10-20) Glucose 87 (70-99(Fasting)) mg/dl Calcium 9.0 (8.6-10.3) mg/dl C-Reactive Protein 1.70 H (0-0.5) mg/dl Tryptase Pending Nasal Screen MRSA (PCR) Negative (Negative) Diagnostic Findings Imaging and microbiology reviewed in [employer]. Medications Administered MAR reviewed in [employer]. PG Care Time/CCT Total # of Minutes Spent Total Time Spent with Patient: Total time spent is greater than 50% in coordination of care (as documented) at patient's floor/unit and/or counseling patient: Coding Level of Care Code 05884 IN/OBS CONSULT LVL 2,35M Diagnoses Allergic drug rash due to sulfonamide L27.0; T37.0X5A
[2023-07-01] MEDS: diphenhydrAMINE Capsule 25 MG CAP PO PRN (18:46)
--- NOTE | 2023-07-01 22:01 | Hospitalist Progress Note ---
Date of Service July 01, 2023 Assessment & Plan (1) Sepsis: Plan: Febrile, tachycardic, white blood count < 4. - Suspected systemic inflammatory response is really due to her type IV hypersensitivity reaction however we will treat as sepsis. Lactate normal and no hypotension to warrant 30 ml/kg fluid resuscitation IV clindamycin to cover for sinusitis Follow-up blood cultures Increased steroids to 60 mg/day of prednisone Rash appears to be much better. No longer SIRS on 06/30 Dermatology recommends the following. 1) AVOID future treatment with Bactrim DS and related sulfa medications. 2) Taper systemic steroids slowly to prevent any potential rebound. Recommend Prednisone 60mg daily x 3 days, then 50mg daily x 3 days, then 40mg daily x 3 days, then 20mg daily x 3 days, then 10mg daily x 3 days. 3) D/w patient and family general skin care measures. Recommended applying Cetaphil moisturizing cream to skin twice daily. (2) Sinusitis: Plan: Clindamycin 600 mg IV q.8 hourly Prednisone should also help with this Saline nasal spray BID Will need to follow-up with ENT in [place] on discharge (3) Allergic drug rash due to sulfonamide: Plan: Type IV hypersensitivity reaction - suspect this was also the cause of her fever given occurrence at the same time Solu-Medrol 125 mg IV given in the ER, will continue 40 mg prednisone p.o. daily however main treatment is just withdrawal of Bactrim therefore this can be stopped once itching improves Lo 180 mg p.o. daily Diphenhydramine 25 mg IV PRNs q.6 hourly for itching or continued rash Expect improvement over days not hours - may get worse before improving as main treatment is removal of Bactrim which she last took at 6pm yesterday No current mucosal involvement, conjunctivitis or blistering to suggest Josh Brad syndrome - if these develop will need to be transferred to tertiary care center with dermatology Avoid sulfa antibiotics in the future follow-up with allergy with concurrent possible penicillin allergy Plan VTE Prophyalxis - low risk Diet - regular Disposition - admit to med/surg Admission and Anticipated Discharge Date Admission Date: June 29, 2023 Subjective Patient reports feeling better. her rash has improved significantly. She also reports her sinus pressue has improved. Review of Systems Review of Systems: All systems reviewed & are unremarkable except as noted in HPI & below Physical Exam Constitutional: WD/WN, vitals as above Eyes: + anicteric sclerae; no corneal abnormal ity and normal pupil size ENMT: external ear and nose normal, oropharynx normal Respiratory: normal respiratory effort, lungs clear to auscultation Cardiovascular: Rate/Rhythm: regular rhythm and + tachycardic Heart Sounds: no murmur Gastrointestinal (Abdomen): normal bowel sounds, soft, nontender, no hepatosplenomegaly Skin: + erythema (macular rash appears less di ffuse, improving.) Neurologic: moves all extremities and awake; not confused Psychiatric: A+Ox3, euthymic affect Results & Data Results & Data Vital Signs (Past 12 Hours) Vital Signs Temp Pulse Resp BP Pulse Ox O2 Del Method 07/01/23 19:42 36.8 C 80 18 109/72 98 Room Air 07/01/23 15:00 36.8 C 83 16 105/66 94 Room Air PG Care Time/CCT Total # of Minutes Spent Total Time Spent with Patient: Total time spent is greater than 50% in coordination of care (as documented) at patient's floor/unit and/or counseling patient: Coding Level of Care Code 84093 SUB INP/OBS CARE 3/50MIN Diagnoses Sepsis A41.9 Sepsis acute organ dysfunction status: unspecified Sepsis type: sepsis due to unspecified organism Sinusitis J32.9 Chronicity: unspecified Sinusitis location: unspecified location Allergic drug rash due to sulfonamide L27.0; T37.0X5A Time Spent (min) 50 Comment calling multiple services. (1) Sepsis Sepsis acute organ dysfunction status: unspecified Sepsis type: sepsis due to unspecified organism Qualified Code(s): A41.9 - Sepsis, unspecified organism (2) Sinusitis Chronicity: unspecified Sinusitis location: unspecified location Qualified Code(s): J32.9 - Chronic sinusitis, unspecified
[2023-07-01] MEDS: diphenhydrAMINE Capsule 25 MG CAP PO ONE (22:14)
[2023-07-02] MEDS: predniSONE 20 MG TAB PO SCH (09:26)
[2023-07-02] MEDS: cefUROXime axetil 500 MG TAB PO SCH (11:31)
--- NOTE | 2023-07-02 12:03 | Discharge Summary ---
Date of Service July 02, 2023 Admission HPI Per Admitting Provider Constance Huggins is a 23-year-old female who presents to the ER due to fever and rash. She reports a history of wisdom tooth extraction in mid April after which she has had problems with her right maxillary sinus pressure. She has been on multiple rounds of antibiotics including azithromycin, cefuroxime and Levaquin. Of note she never took the penicillin that was prescribed due to a previous allergy to this. Most recently she was seen by ENT in [place] who started Bactrim for 21 days and plan to review a CT of the sinuses following this to determine if she required surgery. She has had no problems with her sinuses prior to her wisdom tooth removal. She started the Bactrim 6 days ago. She has not noticed any change in her sinuses. Last night she developed a fever and a rash which became worse this morning therefore decided to come to the ER. Discharge Data Allergies Allergy/AdvReac Type Severity Reaction Status Date / Time sulfamethoxazole Allergy Severe Márquez-Brad Verified 07/01/23 11:34 [From Bactrim] syndrome trimethoprim [From Bactrim] Allergy Severe Márquez-Brad Verified 07/01/23 11:35 syndrome Penicillins Allergy Rash Verified 03/26/22 00:38 Consultations 06/29/23 12:04 ED Decision to Admit Stat 06/30/23 10:48 Consult Infectious Diseases Routine 07/01/23 11:15 Consult Dermatology Routine 07/01/23 11:54 Consult Allergy / Immunology Routine 07/02/23 09:44 Burn CD for patient Routine Ordered Studies 06/29/23 08:42 CT head/brain wo con Stat 06/29/23 09:23 CT sinus wo con Stat Hospital Course (1) Sepsis: Febrile, tachycardic, white blood count < 4. - Suspected systemic inflammatory response is really due to her type IV hypersensitivity reaction however we will treat as sepsis. Lactate normal and no hypotension to warrant 30 ml/kg fluid resuscitation IV clindamycin to cover for sinusitis Follow-up blood cultures Increased steroids to 60 mg/day of prednisone Rash appears to be much better. No longer SIRS on 06/30 Dermatology recommends the following. 1) AVOID future treatment with Bactrim DS and related sulfa medications. 2) Taper systemic steroids slowly to prevent any potential rebound. Recommend Prednisone 60mg daily x 3 days, then 50mg daily x 3 days, then 40mg daily x 3 days, then 20mg daily x 3 days, then 10mg daily x 3 days. 3) D/w patient and family general skin care measures. Recommended applying Cetaphil moisturizing cream to skin twice daily. (2) Sinusitis: Clindamycin 600 mg IV q.8 hourly Prednisone should also help with this Saline nasal spray BID Will need to follow-up with ENT in [place] on discharge (3) Allergic drug rash due to sulfonamide: Type IV hypersensitivity reaction - suspect this was also the cause of her fever given occurrence at the same time Solu-Medrol 125 mg IV given in the ER, will continue 40 mg prednisone p.o. daily however main treatment is just withdrawal of Bactrim therefore this can be stopped once itching improves Chandrakant 180 mg p.o. daily Diphenhydramine 25 mg IV PRNs q.6 hourly for itching or continued rash Expect improvement over days not hours - may get worse before improving as main treatment is removal of Bactrim which she last took at 6pm yesterday No current mucosal involvement, conjunctivitis or blistering to suggest Josh Brad syndrome - if these develop will need to be transferred to tertiary care center with dermatology Avoid sulfa antibiotics in the future follow-up with allergy with concurrent possible penicillin allergy Plan VTE Prophyalxis - low risk Diet - regular Disposition - admit to med/surg Discharge Plan Discharge Items Reason For Visit: SEPSIS, SINUSITIS Discharge Diagnosis: Allergy to antibiotic Activity: Resume your previous activity Non-emergency contact: Primary Care Provider Call non-emergency contact if: you have any medication questions Follow-up/Referrals: [facility] [Primary Care Provider] - Diet: Regular Addtl Attending Provider Instructions: Good afternoon Ms. Huggins, You were seen for a severe allergic reaction to bactrim. We recommend that you hold off taking bactrim for the rest of your life. This allergic reaction caused a diffuse rash on your body and this improved with steroids. You will continue the steroids and taper it slowly every 3 days. You can continue taking over the counter medication like chandrakant, however this is only supportive care meaning only take it as needed. Other supportive care include: nasal saline sprays, flonase. Remember your main treatment will be your steroids. I discussed your improvement with the infectious disease doctor, and she agreed we can stop antibiotics. I also called the [facility] ENT office, and they will be reviewing your chart and will give you a call to schedule your initial visit. 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 Recommend followup with S in 1-2 weeks. Jus Wang Pending Studies at Discharge: No Stand-Alone Forms: My [facility], Work/School Release, Smoking Cessation Medications and DC Order Prescriptions: New Saline Mist 0.65 % Aerosol,Jasper 2 spray NA BID Qty: 44 0RF prednisone 10 mg tablet 10 mg PO DAILY Qty: 45 0RF Rx Instructions: Take 5 tablets once a day for 3 days then 4 tables for 3 day. then 3 tabs for 3 days 2 tabs for 3 days 1 tab for 3 days Continued Lo Loestrin Fe 1 mg-10 mcg (24)/10 mcg (2) tablet 1 tab PO DAILY Discontinued sulfamethoxazole-trimethoprim 800-160 mg tablet 1 tab PO BID Admission Data Admit Date/Time: 06/29/23 12:13 Attending Provider: Jus Vela Admit Provider: Gilbert Cosme Primary Care Provider: [facility] Other Providers: Gilbert Cosme; Jennifer Lakhani; Jessy Jackman; Roni Denton; Meredith Bains; Georgia Erickson; Tenisha Hernandez; Keyana Saleh; Analia Jones; Charlie Jordan; Kevin Sheets Coding Diagnoses Sepsis A41.9 Sepsis acute organ dysfunction status: unspecified Sepsis type: sepsis due to unspecified organism Sinusitis J32.9 Chronicity: unspecified Sinusitis location: unspecified location Allergic drug rash due to sulfonamide L27.0; T37.0X5A
== END 2023-07-02 14:37 | disposition home or self-care (01) | DRG 872 ==
LOC: ED 08:07 → SUATTDRO 12:13 → 3W 12:13